=== PATIENT | male | born 1945 | race Caucasian/White ===

== ENCOUNTER → 2024-03-01 13:44 | Outpatient (REF) | payer OTHER, SELFPAY | LOC: RAD 13:44 | PROVIDERS: ATTENDING PHYSICIAN Surgery Vascular Surgery; FAMILY PHYSICIAN Internal Medicine | DX: I77.9 Disorder of arteries and arterioles, unspecified (principal) | CPT/HCPCS: 93922; 93925 ==

== ENCOUNTER → 2024-03-26 06:39 | Outpatient (REF) | payer OTHER, SELFPAY ==
[2024-03-26] MEDS: LEXISCAN 0.400000000000000022 MG IV (08:40)
[2024-03-26] MEDS: FLUSH (NSS) 1 FLUSH IV (08:42)
== END ==
LOC: RCS 06:39
PROVIDERS: ATTENDING PHYSICIAN Internal Medicine Cardiovascular Disease; FAMILY PHYSICIAN Internal Medicine
DX: I73.9 Peripheral vascular disease, unspecified (principal); I10 Essential (primary) hypertension
CPT/HCPCS: 78452; 93017; A9500; J2785

== ENCOUNTER 2024-03-29 06:13 | Inpatient (IN) | payer OTHER, SELFPAY ==
[2024-03-24 09:31] VITALS: BMI 26.3
[2024-03-24 09:58] LABS: % Basophils 0.8 % (0-2); % Eosinophils 1.7 % (0-6); % Immature Granulocytes 0.2 % (0-0.5); % Lymphocytes 23.2 % (20.5-51.1); % Monocytes 10.1 % (1.7-9.3); Absolute Eosinophils 0.1 10^3/uL (0-0.7); Absolute Lymphocytes 1.1 10^3/uL (1.2-3.4); Absolute Monocytes 0.5 10^3/uL (0.1-0.6); Hemoglobin 14.6 g/dL (13.0-18.0); Mean Corpuscular Hgb 34.7 pg (27.0-31.0); Mean Corpuscular Volume 102.1 fL (80.0-94.0); Mean Platelet Volume 10.6 fL (7.4-10.4); Nucleated Red Blood Cells % 0 % (-); Platelet Count 131 10^3/uL (130-400); Red Blood Cell Count 4.21 10^6/uL (4.70-6.10); Red Cell Dist. Width 13.1 % (11.5-14.5); White Blood Cell Count 4.8 10^3/uL (4.8-10.8)
[2024-03-24 10:15] LABS: INR 1.08
[2024-03-24 10:20] LABS: Blood Urea Nitrogen 13 mg/dl (9-20); Calcium 9.2 mg/dl (8.4-10.2); Carbon Dioxide 28 mmol/L (22-30); Chloride 103 mmol/L (98-107); Estimated Creatinine Clearance 65 ml/min; Glucose 118 mg/dl (70-99); Potassium 4.3 mmol/L (3.5-5.1); Sodium 139 mmol/L (135-145); eGFR > 60.00
[2024-03-29] VITALS (26 sets, daily range): BP systolic 90–144; BP diastolic 48–126; BMI 25.8; BMI 25.7
[2024-03-29] MEDS: BACTROBAN NASAL 1 GRAM NASAL (06:55)
[2024-03-29] MEDS: NSS 500 IV (06:55)
[2024-03-29] MEDS: PERIDEX 0.12% ORAL RINSE 15 ML PO (06:55)
--- NOTE | 2024-03-29 08:42 | W.SUR.PREOP ---
Pre-Operative Surgical Note
-
I have examined this patient prior to the performance of the scheduled procedure.
The patient's condition is unchanged from the time of the current History and
Physical and the patient is able to undergo the scheduled procedure.
[2024-03-29 09:49] LABS: ACT-LR - POC 351 Seconds (116-155)
[2024-03-29 10:44] LABS: ACT-LR - POC 248 Seconds (116-155)
[2024-03-29 12:10] LABS: Glucose - Point of Care 128 mg/dl (70-99)
[2024-03-29 12:22] LABS: Hematocrit 36.7 % (39.0-52.0); Hemoglobin 12.6 g/dL (13.0-18.0); Mean Corp Hgb Conc. 34.3 g/dL (33.0-37.0); Mean Corpuscular Hgb 34.5 pg (27.0-31.0); Mean Corpuscular Volume 100.5 fL (80.0-94.0); Red Blood Cell Count 3.65 10^6/uL (4.70-6.10); White Blood Cell Count 7.3 10^3/uL (4.8-10.8)
[2024-03-29] MEDS: NSS 1000 IV (12:25)
--- NOTE | 2024-03-29 12:31 | W.IMMPOSTOP ---
Surgical Immed Post Op Note
-
Primary Surgeon: Dr. Rupert Truong III, MD
Assisting Surgeon: Dr. Edison Payne MD, PhD (PGY-1)
Pre-op Diagnosis: High grade severe occlusive peripheral artery disease left lower extremity
Post-op Diagnosis: High grade severe occlusive peripheral artery disease left lower extremity
Procedure Performed: Left common femoral endarterectomy, diagnostic arteriogram, left common iliac balloon angioplasty, intravascular lithotripsy, stent ([id number]) x1
Anesthesia Type: General
Specimen / Cultures: None
Estimated Blood Loss: 75cc
Complications: None
Operative Findings: The patient was brought to the OR and placed in the supine position. Following anesthesia induction and intubation, ultrasound guidance was used to map the course of the left common femoral artery and bifurcation into left SFA
and profunda. The skin was marked along this course with a marking pen. The patient was then prepped and draped in usual sterile fashion. Incision was made and a combination of sharp and electrocautery dissection was performed. The left common
femoral artery was identified just below the inguinal ligament. Circumferential dissection of the left common femoral artery was performed distally. Small venous branches were ligated with silk ties/clips and divided. A vessel loop was passed around
the proximal left CLAIMS ADJUSTER for proximal control. Vessel loops were also passed around perforating branches from the left CLAIMS ADJUSTER and around the SFA and profunda for distal control. After proximal and distal control was achieved, we turned our focus to the
endovascular component of the case. Using a micropuncture needle, we accessed the [place] left CLAIMS ADJUSTER and introduced a 5-american sheath over a [place] wire. A diagnostic arteriogram was performed and showed significant disease of the left common iliac.
Intravascular lithotripsy was performed along the location of disease. A balloon angioplasty was then performed and [id number] stent was placed. Following this portion of the procedure, arteriotomy was performed and extended with Perez scissors.
Endarterectomy was performed using a freer. Heparinized saline was used to irrigate the site. Then a bovine pericardial patch was brought to the field and a patch arterioplasty was performed with running 6-0 prolene suture. At the conclusion of the
patch arterioplasty, doppler signals were noted in the profunda distally and left CLAIMS ADJUSTER proximally. Hemostasis was achieved with gel foam. Soft tissues and skin were closed with suture and alternating carl and suture at the skin level. A john
dressing was applied. At the conclusion of the case, doppler signals were noted in DP/PT bilaterally. The patient was transferred to the PACU in stable condition.
[2024-03-29 12:38] LABS: INR 1.17; PT 14.7 Sec (11.4-14.6)
[2024-03-29 12:42] LABS: Blood Urea Nitrogen 12 mg/dl (9-20); Calcium 7.6 mg/dl (8.4-10.2); Carbon Dioxide 24 mmol/L (22-30); Chloride 110 mmol/L (98-107); Estimated Creatinine Clearance 93 ml/min; Glucose 150 mg/dl (70-99); Magnesium 1.9 mg/dl (1.6-2.3); Potassium 3.9 mmol/L (3.5-5.1); Sodium 138 mmol/L (135-145); eGFR > 60.00
--- NOTE | 2024-03-29 12:57 | OR.RPT ---
Operative Report
Operative Report
Date of Operation: 03/29/2024
Pre Op Diagnosis:
1.) Severe lifestyle limiting lower extremity claudication with negative quality of life implications
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
3.) Heavily calcified left common femoral artery occlusive plaque
Post Op Diagnosis:
1.) Severe lifestyle limiting lower extremity claudication with negative quality of life implications
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
3.) Heavily calcified left common femoral artery occlusive plaque
Procedure:
1.) Left common femoral artery endarterectomy with patch angioplasty using bovine pericardium
2.) Retrograde intravascular lithotripsy to left common iliac artery calcified stenosis (10 mm x 30 mm L6 shockwave balloon)
3.) Retrograde balloon angioplasty and stenting to left common iliac artery stenosis (10 mm x 59 mm [place] VBX)
Surgeon: Rupert Truong III, MD
Weed Eradicator: Edison Payne MD PhD, PGY1
Anesthesia: General
Complications: None
Estimated Blood Loss: 75 cc
History and Indications for Procedure: 78-year-old male with debilitating lower extremity claudication. Cross-sectional imaging obtained preoperatively demonstrated heavily calcified stenosis in the left common iliac artery along with bulky
calcified occlusive plaque in the left common femoral artery.
Procedure in Detail: The patient was correctly identified and placed supine on the operating table. After adequate induction of anesthesia, the abdomen, pelvis, and bilateral groins to the thighs were prepped and draped in usual sterile fashion.
Preoperative antibiotics were administered. A time-out procedure was performed with the nursing and anesthesia staff confirming the patient's identity as well as the nature and laterality of the procedure. I made a vertical incision over the left
groin. Electrocautery was used to dissect the subcutaneous tissue. Lymphatics were ligated and divided between silk ties and metal clips. Through a combination of sharp dissection and electrocautery, I identified the common femoral artery at the
inguinal ligament. Dissection continued under the inguinal ligament into the left retroperitoneum. The distal left external iliac artery was encircled with a vessel loop underneath the inguinal ligament. Dissection was then continued distally. The
femoral bifurcation was identified as well as the proximal superficial femoral artery and profunda femoral artery. The proximal superficial femoral artery was encircled with a vessel loop. Dissection on the profunda femoral artery was carried to
the first branch point. The distal main profunda femoral artery was controlled with a vessel loop.
The patient was systemically heparinized. We punctured the left common femoral artery in a retrograde fashion with a micropuncture needle. I then upsized to a 8 Vietnamese sheath over a [place] wire. A retrograde left iliac arteriogram was performed
which clearly demonstrated the heavily calcified stenosis in the left common iliac artery. I exchanged out for a 0.018 wire. Due to the heavily calcified nature of the iliac arterial disease and in an effort to modify the calcium to achieve
maximum luminal gain with endovascular intervention I elected to proceed with intravascular lithotripsy. A 10 mm x 30 mm L6 shockwave balloon was placed across the common iliac artery stenosis under roadmap guidance. Alternating rounds of
lithotripsy pulse delivery at sub-nominal pressure and angioplasty at nominal pressure was performed across the stenosis. In between rounds of pulse delivery and angioplasty the balloon was deflated and repositioned under roadmap guidance. All 300
pulses were delivered. Subsequent arteriogram demonstrated a significantly improved result. Under roadmap guidance I brought into position a 10 mm x 59 mm [place] VBX stent. The stent was positioned and deployed in the desired location. Subsequent
arteriogram demonstrated an excellent technical result with a widely patent left common iliac artery stent and no residual stenosis identified.
At this point we proceeded with the common femoral endarterectomy. The proximal and distal vessel loops were secured. The sheath was removed followed by the wire. A Derra type vascular clamp was applied gently to the distal external iliac artery.
Perez scissors were used to extend the arteriotomy proximally and distally on the common femoral artery. The arteriotomy was carried distally to the SFA origin. The arteriotomy was extended up to the proximal common femoral artery. An
endarterectomy was performed in the standard fashion with a [place] elevator. The proximal extent of the plaque was transected and then additional elements of plaque were pulled out from the external iliac artery using forceps and clamps. The distal
end of the plaque terminated at the femoral bifurcation and feathered nicely at the profunda femoral artery origin. There was brisk backbleeding from the profunda femoral artery which was flushed with heparinized saline. The endarterectomy plane
was then irrigated with heparinized saline solution and any loose fronds of tissue were removed. I brought onto the field a precut 1 cm x 6 cm piece of bovine pericardium and this was used as a patch. The patch was then sewn in place using a
running 6-0 Prolene suture. Prior to the completion of the anastomosis, we forward and back flushed the artery. The anastomosis was then completed. The proximal and distal vessel loops were then released. There was an excellent pulse within the
common femoral artery and proximal profunda femoral artery. The suture line was closely inspected for hemostasis which was achieved.
Satisfied with this result, we then concluded the procedure. Heparin was reversed with protamine. The wound was irrigated with copious amounts of warm saline solution. Hemostasis was achieved within the wound bed. The wound was then closed in
multiple layers and a sterile MAN dressing was applied.
The patient tolerated the procedure well and was taken to the recovery room in good condition.
Attestation: I was present and responsible for the entire procedure
Signed:
Rupert Truong III, MD
[facility]
[phone] (cell)
--- NOTE | 2024-03-29 13:06 | CON.INTV ---
Consultation
Consultation Request
Date/Time Consultation Requested: 03/29/24
Date/Time Consultation Performed: 03/29/24
Performing Provider: Amalia
Reason for Consultation: ICU
Medical History
-
History of Present Illness:
Patient is a 78-year-old male with previous history of CAD, history of colon cancer, hypertension, former smoker presenting for elective vascular procedure. Patient has history of severe PAD with chronic claudication worsening in the left lower
extremity. He underwent left femoral endarterectomy, diagnostic arteriogram, left iliac balloon angioplasty, lithotripsy with stent placement 03/29/2024 and transferred to ICU for postoperative management.
Notably, he drinks 8 ounces of whiskey per day.
Former extensive smoker in past, quit >30 years ago.
Past Medical History
Past Medical History: Other (see list below)
Social History
Tobacco: Former Smoker
Alcohol: Daily
Drug: None
Allergies / Home Medications
Allergies
Allergy/AdvReac Type Severity Reaction Status Date / Time
lorazepam [From Ativan] Allergy Severe Unknown Verified 03/29/24 06:30
cilostazol Allergy Tachycardia Verified 03/29/24 06:29
escitalopram Allergy Unknown Verified 03/29/24 06:31
sertraline Allergy Unknown Verified 03/29/24 06:31
Home Medications
�Medication �Instructions �Recorded �Confirmed �Last Taken �Type
aspirin 81 mg tablet,delayed 162 mg PO QPM Blood clot 10/26/11 03/29/24 03/28/24 08:00 History
release prevention/tx
metoprolol tartrate 25 mg tablet 12.5 mg PO BID Blood pressure 10/26/11 03/29/24 03/28/24 20:00 History
lisinopril 20 mg tablet 20 mg PO DAILY Blood pressure 03/05/16 03/29/24 03/28/24 08:00 History
rosuvastatin 40 mg tablet (Crestor) 40 mg PO QPM High cholesterol 03/05/16 03/29/24 03/28/24 08:00 History
levothyroxine 50 mcg tablet 50 mcg PO DAILY AT 0700 Thyroid 12/12/21 03/29/24 03/28/24 08:00 History
tamsulosin 0.4 mg capsule 0.4 mg PO QPM Urinary issue 12/12/21 03/29/24 03/28/24 20:00 History
ezetimibe 10 mg tablet 10 mg PO DAILY High cholesterol 12/18/21 03/29/24 03/28/24 08:00 History
alprazolam 0.5 mg tablet 0.25 mg PO PRN PRN ANXIETY 10/11/22 03/29/24 03/28/24 08:00 History
psyllium 1 packet PO DAILY 03/18/24 03/29/24 03/28/24 08:00 History
clopidogrel 75 mg tablet (Plavix) 75 mg PO DAILY 03/29/24 03/29/24 03/29/24 05:00 History
Review of Systems
-
History Source: Patient
All other systems: Negative unless noted
Vitals / Labs / Diagnostic Testing
Vital Signs
Temp Pulse Resp BP Pulse Ox
97.4 F 60 14 115/56 98
03/29/24 12:45 03/29/24 12:45 03/29/24 12:45 03/29/24 12:45 03/29/24 12:45
Lab Data
03/29/24 12:15
03/29/24 12:15
Laboratory Results
03/29/24
12:15
PT 14.7 H
INR 1.17
APTT 33.0
Diagnostic Testing:
Physical Exam
-
HEENT: Normocephalic, Anicteric, Moist Mucous Membranes and Other (halatosis)
Cardiovascular: S1/S2 and Regular Rhythm
Respiratory: Clear and Non-Labored Respirations
GI: Soft, Non Distended and Non Tender
Neurology: Awake, Alert, Oriented, AO x 3 and No Motor Deficits
Skin: Warm, Dry and Good Color
General: Comfortable and Other (NAD)
Assessment
-
Patient is a 78-year-old male with previous history of CAD, history of colon cancer, hypertension, former smoker presenting for elective vascular procedure. Patient has history of severe PAD with chronic claudication worsening in the left lower
extremity. He underwent left femoral endarterectomy, diagnostic arteriogram, left iliac balloon angioplasty, lithotripsy with stent placement 03/29/2024 and transferred to ICU for postoperative management.
Severe PAD s/p Left common femoral artery endarterectomy with patch angioplasty using bovine pericardium 03/29/24
Retrograde intravascular lithotripsy to left common iliac artery calcified stenosis (10 mm x 30 mm L6 shockwave balloon)
Retrograde balloon angioplasty and stenting to left common iliac artery stenosis (10 mm x 59 mm [place] VBX)
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
CAD status post angioplasty 2003 and 2010
Colon cancer status post resection and chemoradiation 2003
Hypertension
Anal fissure
Colon polyps
Hypercholesterolemia
Left lower extremity angioplasty and stents 12/2021
Former smoker x 27 years 3 to 4 pack/day quit smoking 1991
Chronic ETOH use, drinks 8 ounces of whiskey per day.
Plan
Patient is s/p FEA, angioplasty/lithotripsy by vascular surgery service, POD #0
Continue observation following procedure
Follow neurovascular checks per protocol
ASA, plavix and statin on board
Follow BP monitoring and parameters as set by primary team
Cardiac history noted
Monitor on telemetry
Pain control per protocol
RASS goal 0
No prior history of pulmonary disease, smoking hx includes 2-3PPD for 20+ years, quit >30 years ago.
CXR reviewed indicating no acute disease
No prior PFTs for review
Encouraged IS
At risk for COPD, asympatomatic
Diet advancement per protocol
Aspiration precautions
GI prophylaxis if indicated for stress ulcer prevention in the critically ill
Creat at baseline, follow UO
Critical I/Os
Void trials
Replete electrolytes as needed
No signs/symptoms suspicious for infectious etiology at this time
Will observe off antibiotics for now
Follow temperatures/CBC
Hb and platelets postoperatively stable
DVT prophylaxis recommended if not contraindicated based on procedural history -- heparin SQ and mechanical SCDs
Encouraged OOB/PT/OT/ambulation once cleared by surgical team
We will follow
Diagnostic Data
Chest X-Ray: 03/24/24- No significant change. No acute pulmonary process.
CT Scan:
Echo:
PFT's:
Reports and relevant images were personally reviewed.
-----
Critical care time 50 mins -- this includes review of history, physical exam, medications, hemodynamic/ventilator parameters, laboratory data, imaging and discussion with house staff, pharmacy, respiratory therapy, flavoring oil filterer, and nursing.
[2024-03-29 13:18] LABS: Mean Platelet Volume 10.6 fL (7.4-10.4); Platelet Count 92 10^3/uL (130-400)
--- NOTE | 2024-03-29 13:30 | PTCARENOTE ---
Patient received from PACU. Awake, alert, oriented x3, forgetful but appropriate. Denies any complaints of pain. patient on 4L nasal cannula, oxygen saturation 98%, diminished breath sounds Tele leads attached, sinus rhythm on monitor. Doppler
pulses bilateral DP. Heparin for dvt prophylaxis. Patient is written for clear liquid diet, denies any complaints of nausea or vomiting. Truong draining yellow urine. NSS infusing through right INT at 80ml/hr. left groin incision covered with MAN
dressing. Blinking green, spots of scant dry drainage noted on dressing. Neurovascular checks as documented in worklist. Will review orders, patient oriented to room, oriented to room and plan of care. Call samano within reach.
[2024-03-29] MEDS: SYNTHROID PO (13:43)
[2024-03-29] MEDS: HEPARIN 5000 UNITS SC (15:38)
[2024-03-29] MEDS: ASPIR LOW (ENTERIC COATED) 162 MG PO (17:33)
[2024-03-29] MEDS: FLOMAX 0.400000000000000022 MG PO (17:34)
--- NOTE | 2024-03-29 19:10 | PTCARENOTE ---
vital signs pulled over from previous shift. This RN unable to verify VS accuracy.
[2024-03-29] MEDS: LOPRESSOR 12.5 MG PO (19:18)
--- NOTE | 2024-03-29 19:51 | PTCARENOTE ---
Assumed care of Pt. AAOX3, flat affect. nsr on monitor. pox 97% on 3L. BL pedal pulses with doppler. Oral care provided. vogt draining yellow urine. call samano within reach.
[2024-03-29] MEDS: XANAX 0.25 MG PO (22:25)
--- NOTE | 2024-03-29 23:45 | PTCARENOTE ---
Pt resting, sleeping intermittently. denies pain or discomfort. see neurovascular check documentation. Pt repositioned in bed. A-line patent. IVf infusing as ordered. call samano within reach.
[2024-03-30] VITALS (38 sets, daily range): BP systolic 100–132; BP diastolic 39–74; PULSE 65; BMI 25.7; BMI 26.2
[2024-03-30] MEDS: NSS 1000 IV (00:21)
[2024-03-30] MEDS: HEPARIN 5000 UNITS SC ×3 (00:22→16:51)
--- NOTE | 2024-03-30 04:00 | PTCARENOTE ---
Pt resting, appears comfortable. 97% on RA. denies pain. MAN dressing intact. Pt cleaned with CHG wipes, bed linens and gown changed. nsr on monitor. Pt repositioned in bed. call samano within reach.
[2024-03-30 04:59] LABS: Hematocrit 33.1 % (39.0-52.0); Hemoglobin 11.8 g/dL (13.0-18.0); Mean Corp Hgb Conc. 35.6 g/dL (33.0-37.0); Mean Corpuscular Hgb 35.3 pg (27.0-31.0); Mean Corpuscular Volume 99.1 fL (80.0-94.0); Mean Platelet Volume 11.3 fL (7.4-10.4); Platelet Count 104 10^3/uL (130-400); Red Blood Cell Count 3.34 10^6/uL (4.70-6.10); Red Cell Dist. Width 12.7 % (11.5-14.5); White Blood Cell Count 10.5 10^3/uL (4.8-10.8)
[2024-03-30 05:06] LABS: INR 1.11; PT 14.1 Sec (11.4-14.6)
[2024-03-30 05:07] LABS: APTT 34.4 Sec (23.4-35.0)
[2024-03-30 05:17] LABS: Blood Urea Nitrogen 12 mg/dl (9-20); Calcium 7.9 mg/dl (8.4-10.2); Carbon Dioxide 23 mmol/L (22-30); Chloride 109 mmol/L (98-107); Estimated Creatinine Clearance 93 ml/min; Glucose 160 mg/dl (70-99); Magnesium 1.9 mg/dl (1.6-2.3); Phosphorus 3.1 mg/dl (2.5-4.5); Potassium 3.9 mmol/L (3.5-5.1); Sodium 137 mmol/L (135-145); eGFR > 60.00
[2024-03-30] MEDS: SYNTHROID 50 MCG PO (06:35)
--- NOTE | 2024-03-30 07:13 | W.PN.INTV ---
Today's Communication / Plan
Recommendations
Doing well postoperatively
MSAS for ETOH symptoms
Encouraged OOB/ambulation/PT/IS
Transfer process to tele initiated, we will sign off at this time
Assessment
-
Patient is a 78-year-old male with previous history of CAD, history of colon cancer, hypertension, former smoker presenting for elective vascular procedure. Patient has history of severe PAD with chronic claudication worsening in the left lower
extremity. He underwent left femoral endarterectomy, diagnostic arteriogram, left iliac balloon angioplasty, lithotripsy with stent placement 03/29/2024 and transferred to ICU for postoperative management.
Severe PAD s/p Left common femoral artery endarterectomy with patch angioplasty using bovine pericardium 03/29/24
Retrograde intravascular lithotripsy to left common iliac artery calcified stenosis (10 mm x 30 mm L6 shockwave balloon)
Retrograde balloon angioplasty and stenting to left common iliac artery stenosis (10 mm x 59 mm [place] VBX)
Mild ETOH w/d symptoms
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
CAD status post angioplasty 2003 and 2010
Colon cancer status post resection and chemoradiation 2003
Hypertension
Anal fissure
Colon polyps
Hypercholesterolemia
Left lower extremity angioplasty and stents 12/2021
Former smoker x 27 years 3 to 4 pack/day quit smoking 1991
Chronic ETOH use, drinks 8 ounces of whiskey per day.
Plan
Patient is s/p FEA, angioplasty/lithotripsy by vascular surgery service, POD #1
Continue observation following procedure
Follow neurovascular checks per protocol
ASA, plavix and statin on board
ETOH w/d, mild complaints, continue MSAS
Follow BP monitoring and parameters as set by primary team
Cardiac history noted
Monitor on telemetry
Pain control per protocol
RASS goal 0
No prior history of pulmonary disease, smoking hx includes 2-3PPD for 20+ years, quit >30 years ago.
CXR reviewed indicating no acute disease
No prior PFTs for review
Encouraged IS
At risk for COPD, asymptomatic
Diet advancement per protocol
Aspiration precautions
GI prophylaxis if indicated for stress ulcer prevention in the critically ill
Creat at baseline, follow UO
Critical I/Os
Void trials
Replete electrolytes as needed
No signs/symptoms suspicious for infectious etiology at this time
Will observe off antibiotics for now
Follow temperatures/CBC
Hb and platelets postoperatively stable
DVT prophylaxis recommended if not contraindicated based on procedural history -- heparin SQ and mechanical SCDs
Encouraged OOB/PT/OT/ambulation once cleared by surgical team
Transfer to tele
Diagnostic Data
Chest X-Ray: 03/24/24- No significant change. No acute pulmonary process.
CT Scan:
Echo:
PFT's:
Reports and relevant images were personally reviewed.
-----
Critical care time 34 mins -- this includes review of history, physical exam, medications, hemodynamic/ventilator parameters, laboratory data, imaging and discussion with house staff, pharmacy, respiratory therapy, berry picker, and nursing.
Subjective Dataa
Subjective Data
Date of Service:
Date of Service: March 30, 2024
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
Subjective:
doing well today, OOB
has some mild tremors
otherwise stable on RA
Objective Data
Data Reviewed
Vital Signs / I&O / Oxygen:
Vital Signs
Temp Pulse Resp BP Pulse Ox
97.8 F 64 19 108/39 94
03/30/24 03:48 03/30/24 06:30 03/30/24 06:30 03/30/24 06:30 03/30/24 06:30
Intake and Output
03/29/24 03/30/24 03/31/24
06:59 06:59 06:59
Intake Total 2069 / 2069
Output Total 2425 / 242
Balance -355 / -355
SaO2 94
Nasal Cannula flow liters per 2
minute
Physical Exam
General: Comfortable and Other (NAD)
HEENT: Normocephalic, Anicteric and Moist Mucous Membranes
Cardiovascular: S1-S2 and Regular Rhythm
Respiratory: Clear and Non-Labored Respirations
GI: Soft, Non Distended and Non Tender
Neurology: Awake, Alert, Oriented, AO x 3, No Motor Deficits and Tremors
Skin: Warm, Dry and Good Color
Labs/Micro/Reports
Lab Data
03/30/24 04:38
03/30/24 04:38
Laboratory Results
03/29/24 03/30/24
12:15 04:38
PT 14.7 H 14.1
INR 1.17 1.11
APTT 33.0 34.4
--- NOTE | 2024-03-30 08:01 | W.PN.VS ---
Addendum entered and electronically signed by Rupert Truong III, MD 03/30/24 11:02:
This patient was seen and examined with BEVERLY Coughlin. I agree with the history and physical exam as well as the assessment and plan.
Signed:
Rupert Truong III, MD
[facility]
[phone] (cell)
Original Note:
Today's Communication / Plan
-
Seen and assessed with Dr. Truong
Assessment/Plan
-
POD 1 Left common femoral endarterectomy, diagnostic arteriogram, left common iliac balloon angioplasty, intravascular lithotripsy, stent ([id number]) x1
Plan:
-DC A-line
-DC Dionne
-Out of bed
-PT
-Downgrade to [address] [place] [address]/[facility]
Subjective Data
-
Date of Service: March 30, 2024
Patient seen at bedside this a.m. with Dr. Truong. Patient offers no complaints at this time. No events overnight
Objective Data
-
Vital Signs
Temp Pulse Resp BP Pulse Ox
97.8 F 64 19 108/39 94
03/30/24 03:48 03/30/24 06:30 03/30/24 06:30 03/30/24 06:30 03/30/24 06:30
Intake and Output
03/29/24 03/30/24 03/31/24
06:59 06:59 06:59
Intake Total 2069 / 2069
Output Total 2425 / 2425
Balance -355 / -355
Intake:
Oral fluids 480 / 480
IV fluids (Total) 1590 / 1590
Normosol 150 / 150
Nss 1,000 ml @ 80 mls/hr IV . 1440 / 1440
[id number] [id number] Rx#:[id number]
Output:
Urine, Truong 2425 / 2425
Lab Results
03/30/24 04:38
03/30/24 04:38
Calcium 7.9 mg/dl (8.4-10.2) L 03/30/24 04:38
Phosphorus 3.1 mg/dl (2.5-4.5) 03/30/24 04:38
Magnesium 1.9 mg/dl (1.6-2.3) 03/30/24 04:38
Physical Exam
-
AAOx3
No tachypnea on room air
No tachycardia
Abdomen soft
Groin site clean dry and intact, soft, john intact
Excellent Doppler signals
[2024-03-30] MEDS: METAMUCIL, KONSYL 1 PACKET PO (08:21)
[2024-03-30] MEDS: ZESTRIL 20 MG PO (08:22)
[2024-03-30] MEDS: PLAVIX 75 MG PO (08:22)
[2024-03-30] MEDS: ZETIA 10 MG PO (08:22)
[2024-03-30] MEDS: LOPRESSOR 12.5 MG PO ×2 (08:22→19:53)
[2024-03-30] MEDS: ROXICODONE 5 MG PO ×2 (09:19→22:31)
--- NOTE | 2024-03-30 10:02 | PTCARENOTE ---
pt awake and alert, pleasant , pt NSR on monitor, BP 112/54, L groin [place] dressing intact, L foot pink , slight decrease in sensation as previous , palpable pedal and Posterior tibial pulses , Truong cath DC as ordered at 0900, [place] DC as ordered
0900, pt now oob in chair with 2 assist, pt is tremulous bilateral upper extremities , poor appetite , encouraging po intake , he is now written for telemetry status
--- NOTE | 2024-03-30 11:06 | CM ---
CM following re: discharge planning.
Discussed in Rounds, reviewed pt's chart, met with pt.
Pt is a 78 year old male, admitted with primary dx of POD 1 Left common femoral endarterectomy, diagnostic arteriogram, left common iliac balloon angioplasty, intravascular lithotripsy, stent.
Pt reports he lives with spouse in a condo, has 3 supportive children, ambulates with a walker. No VN or SNF history. Pt reports he was receiving outpatient PT/OT [employer] T[facility] and he plans to resume outpatient PT/OT.
CM consulted to assist pt with D&A treatment resources. Pt declined having drinking problem, expressed unhappiness to talk about it stating: 'I have 2 beers daily and do not see it as a problem'. Per record pt told to MD he drinks 8 OZ of whisky
daily. Pt declined an offer to meet with [facility] team.
PCP: Rupert Reno
Pharmacy: [facility] [place].
D/c plan: home with resumptions of outpatient PT/OT and family support.
CM will follow with discharge plan updates as hospitalization progresses
--- NOTE | 2024-03-30 14:36 | PTCARENOTE ---
pt complaining of bladder distention, bladder scan > 600 pt was straight cath for 600ml urine
[2024-03-30] MEDS: CRESTOR 40 MG PO (17:39)
[2024-03-30] MEDS: FLOMAX 0.400000000000000022 MG PO (17:39)
[2024-03-30] MEDS: ASPIR LOW (ENTERIC COATED) 162 MG PO (17:39)
[2024-03-30] MEDS: XANAX 0.25 MG PO (22:31)
[2024-03-31] VITALS (8 sets, daily range): BP systolic 93–129; BP diastolic 53–66; PULSE 71
[2024-03-31] MEDS: HEPARIN 5000 UNITS SC ×4 (01:00→23:39)
[2024-03-31] MEDS: SYNTHROID 50 MCG PO (06:01)
[2024-03-31 06:23] LABS: Hematocrit 32.6 % (39.0-52.0); Hemoglobin 11.1 g/dL (13.0-18.0); Mean Corpuscular Volume 102.8 fL (80.0-94.0); Mean Platelet Volume 11.5 fL (7.4-10.4); Platelet Count 94 10^3/uL (130-400); Red Blood Cell Count 3.17 10^6/uL (4.70-6.10); Red Cell Dist. Width 13.2 % (11.5-14.5); White Blood Cell Count 7.5 10^3/uL (4.8-10.8)
[2024-03-31 06:46] LABS: Blood Urea Nitrogen 13 mg/dl (9-20); Calcium 8.2 mg/dl (8.4-10.2); Carbon Dioxide 28 mmol/L (22-30); Chloride 105 mmol/L (98-107); Estimated Creatinine Clearance 81 ml/min; Glucose 123 mg/dl (70-99); Potassium 3.6 mmol/L (3.5-5.1); Sodium 137 mmol/L (135-145); eGFR > 60.00
--- NOTE | 2024-03-31 07:42 | W.PN.VS ---
Addendum entered and electronically signed by Marcelo Sanchez MD 03/31/24 08:23:
Seen and examined with GURPREET Almazan. Agree with findings as noted below. Patient without specific complaints this morning. On exam abdomen is soft, nondistended, nontender. Left groin flat, no hematoma. Palpable DP pulse. Foot is warm. Plan/as
discussed and noted below.
Original Note:
Today's Communication / Plan
-
Patient seen and examined at bedside with Dr. Marcelo Sanchez, below plan reviewed with attending.
Assessment/Plan
-
POD 2 Left common femoral endarterectomy, diagnostic arteriogram, left common iliac balloon angioplasty, intravascular lithotripsy, stent ([id number]) x1
Plan:
-Out of bed
-PT
-JOHN dressing to be changed prior to dc by this provider
- Likely discharge today
Subjective Data
-
Date of Service: March 31, 2024
Patient resting comfortably in bed, offers no complaints. Reports tolerating PO diet, and well managed post operative pain.
Objective Data
-
Vital Signs
Temp Pulse Resp BP Pulse Ox
97.8 F 57 18 111/61 96
03/31/24 03:51 03/31/24 03:51 03/31/24 03:51 03/31/24 03:51 03/31/24 03:51
Intake and Output
03/30/24 03/31/24 04/01/24
06:59 06:59 06:59
Intake Total 2070 / 2150 720 / 720
Output Total 2425 / 2425 1800 / 1800
Balance -355 / -275 -1080 / -1080
Intake:
Oral fluids 480 / 480 480 / 480
IV fluids (Total) 1590 / 1670 240 / 240
Normosol 150 / 150
Nss 1,000 ml @ 80 mls/hr IV . 1440 / 1520 240 / 240
[id number] Rx#:[id number]
Output:
Urine, Truong 2425 / 2425 500 / 500
Urine, Voided 700 / 700
Straight cath output 600 / 600
Other:
Number of approximated SMALL 1
amounts of urine
Lab Results
03/31/24 05:45
03/31/24 05:45
Calcium 8.2 mg/dl (8.4-10.2) L 03/31/24 05:45
Phosphorus 3.1 mg/dl (2.5-4.5) 03/30/24 04:38
Magnesium 1.9 mg/dl (1.6-2.3) 03/30/24 04:38
Physical Exam
-
AAOx3
No tachypnea on room air
No tachycardia
Abdomen soft
Groin site clean dry and intact, soft, john intact, no hematoma
Left +1 palpable DP, BL feet warm
[2024-03-31] MEDS: LOPRESSOR 12.5 MG PO ×2 (08:37→19:25)
[2024-03-31] MEDS: ZETIA 10 MG PO (08:37)
[2024-03-31] MEDS: PLAVIX 75 MG PO (08:37)
[2024-03-31] MEDS: ZESTRIL 20 MG PO (08:37)
[2024-03-31] MEDS: METAMUCIL, KONSYL 1 PACKET PO (08:37)
--- NOTE | 2024-03-31 10:15 | PN.CDI ---
CDI
- -
CDI:
Physician Documentation Request
Admit Date: 03/29/24 06:13
Dear Vascular Provider,
Please review the following and provide your response in the progress notes.
Clinical Indicators:
03/29 Procedure Performed:
#...Left common femoral endarterectomy, diagnostic arteriogram,
#...left common iliac balloon angioplasty, intravascular lithotripsy, stent ([id number]) x1
#Estimated Blood Loss: 75cc
Laboratory Tests
03/24/24 03/29/24 03/30/24
09:41 12:15 04:38
Hgb 14.6 12.6 L 11.8 L
Hct 43.0 36.7 L 33.1 L
03/31/24
05:45
Hgb 11.1 L
Hct 32.6 L
Based on the above and your clinical assessment, please clarify in the progress notes, the appropriate diagnosis, if significant, that supports the above abnormalities and additional evaluation, monitoring and/or treatment rendered:
Acute blood loss anemia
Abnormal lab value, clinically insignificant
Other(please specify)
Use of terms such as suspected, likely, concern for, or probable (associated with a specific diagnosis that is being evaluated, monitored, or treated as if it exists) are acceptable and can be coded in the inpatient setting, when documented at the
time of discharge.
Thank you,
Maggy Melendez RN BSN CCDS
CDI Specialist
please contact via tiger text
Please use your independent medical judgment in providing your response.
--- NOTE | 2024-03-31 10:24 | W.PN.UPDATE ---
Update Note
Progress Note Update
IN RESPONSE TO CDI:
03/29 Procedure Performed:
#...Left common femoral endarterectomy, diagnostic arteriogram,
#...left common iliac balloon angioplasty, intravascular lithotripsy, stent ([id number]) x1
#Estimated Blood Loss: 75cc
Laboratory Tests
03/24/24 03/29/24 03/30/24
09:41 12:15 04:38
Hgb 14.6 12.6 L 11.8 L
Hct 43.0 36.7 L 33.1 L
03/31/24
05:45
Hgb 11.1 L
Hct 32.6 L
Based on the above and your clinical assessment, please clarify in the progress notes, the appropriate diagnosis, if significant, that supports the above abnormalities and additional evaluation, monitoring and/or treatment rendered:
Abnormal lab value, clinically insignificant: likely a combination of minimal blood loss intraoperatively plus dilution from IV fluids. Monitored with daily H&H, which has drifted within a reasonable range and does not require treatment.
--- NOTE | 2024-03-31 10:32 | PTCARENOTE ---
nurse reached out to DAMAGE CUTTER under [id number] pertaining to MSAS charting. no order initially placed in chart. after discussing with Vascular DAMAGE CUTTER, okay to stop MSAS checks. pt is oob minimal assist to the chair for breakfast this AM.
--- NOTE | 2024-03-31 11:17 | PTCARENOTE ---
pct got an automatic bp of 93/53. this nurse got a manual of 98/62. Pt is asymptomatic and reports no issues or complaints at this time. his AM bp was 116/65 prior to getting his BP medications but he said he usually runs in the 130/140's prior to
taking it. MOISTURE METER OPERATOR made aware of this due to no hospitalist being assigned to this patient.
[2024-03-31] MEDS: KCL 40 MEQ PO (11:47)
--- NOTE | 2024-03-31 12:40 | W.PN.UPDATE ---
Update Note
Progress Note Update
John dressing changed at bedside. Incisional site clean, dry, intact. Well-approximated, no drainage. New john dressing applied
--- NOTE | 2024-03-31 15:56 | CM ---
Reviewed the chart notes and spoke with the patient and his spouse at the bedside. IMM signed and placed on chart. Patient anticipates being discharged tomorrow. CM continues to be available to patient/family and is monitoring medical plan for
needs at discharge.
Plan: Discharge to home when medically stable.
[2024-03-31] MEDS: FLOMAX 0.400000000000000022 MG PO (17:30)
[2024-03-31] MEDS: ASPIR LOW (ENTERIC COATED) 162 MG PO (17:30)
[2024-03-31] MEDS: CRESTOR 40 MG PO (17:30)
[2024-03-31] MEDS: XANAX 0.25 MG PO (23:39)
[2024-04-01 03:33] VITALS: BP 116/60
[2024-04-01] MEDS: SYNTHROID 50 MCG PO (05:52)
[2024-04-01 06:33] LABS: Hematocrit 32.9 % (39.0-52.0); Hemoglobin 11.4 g/dL (13.0-18.0); Mean Corp Hgb Conc. 34.7 g/dL (33.0-37.0); Mean Corpuscular Hgb 34.9 pg (27.0-31.0); Mean Corpuscular Volume 100.6 fL (80.0-94.0); Mean Platelet Volume 11.1 fL (7.4-10.4); Platelet Count 96 10^3/uL (130-400); Red Blood Cell Count 3.27 10^6/uL (4.70-6.10); Red Cell Dist. Width 13.1 % (11.5-14.5); White Blood Cell Count 5.7 10^3/uL (4.8-10.8)
[2024-04-01 06:58] LABS: Blood Urea Nitrogen 15 mg/dl (9-20); Calcium 8.4 mg/dl (8.4-10.2); Carbon Dioxide 27 mmol/L (22-30); Chloride 105 mmol/L (98-107); Estimated Creatinine Clearance 81 ml/min; Glucose 120 mg/dl (70-99); Potassium 3.8 mmol/L (3.5-5.1); Sodium 136 mmol/L (135-145); eGFR > 60.00
[2024-04-01 07:30] VITALS: BP 141/67
--- NOTE | 2024-04-01 08:10 | W.PN.VS ---
Addendum entered and electronically signed by Marcelo Sanchez MD 04/01/24 16:17:
Seen and examined with GURPREET Almazan early this a.m. This is a late entry. Agree with findings as noted below. Patient without any new significant complaints. Left groin flat, no hematoma. Dressing clean dry and intact. Foot warm with excellent
dopplerable signal. Plan/as discussed and noted below.
Original Note:
Today's Communication / Plan
-
Seen and assessed with Dr. Sanchez
Assessment/Plan
-
POD 3 Left common femoral endarterectomy, diagnostic arteriogram, left common iliac balloon angioplasty, intravascular lithotripsy, stent ([id number]) x1
Plan:
-Discharge home
Subjective Data
-
Date of Service: April 01, 2024
Patient seen at bedside seen with Dr. Sanchez. Patient offers no complaints at this time. Patient feels ready to return home
Objective Data
-
Vital Signs
Temp Pulse Resp BP Pulse Ox
98.0 F 63 18 116/60 95
04/01/24 03:33 04/01/24 03:33 04/01/24 03:33 04/01/24 03:33 04/01/24 03:33
Intake and Output
03/31/24 04/01/24 04/02/24
06:59 06:59 06:59
Intake Total 720 / 720 1680 / 1680
Output Total 1800 / 1800 1175 / 1175
Balance -1080 / -1080 505 / 505
Intake:
Oral fluids 480 / 480 1680 / 1680
IV fluids (Total) 240 / 240
Nss 1,000 ml @ 80 mls/hr IV . 240 / 240
[id number] [facility] Rx#:[id number]
Output:
Urine, Truong 500 / 500
Urine, Voided 700 / 700 1175 / 1175
Straight cath output 600 / 600
Other:
Number of approximated SMALL 1
amounts of urine
Number of approximated MODERATE 1
amounts of urine
Lab Results
04/01/24 06:13
04/01/24 06:13
Calcium 8.4 mg/dl (8.4-10.2) 04/01/24 06:13
Phosphorus 3.1 mg/dl (2.5-4.5) 03/30/24 04:38
Magnesium 1.9 mg/dl (1.6-2.3) 03/30/24 04:38
Physical Exam
-
AAOx3
No tachypnea on room air
No tachycardia
Abdomen soft
Groin site clean dry and intact, soft, john intact, no hematoma
Left +1 palpable DP, BL feet warm
--- NOTE | 2024-04-01 08:20 | W.DS.TRANS ---
DC Summary - Flash Designer
-
Discharge Instructions:
Discharge Diagnosis/Procedures Left common femoral artery endarterectomy with
patch angioplasty using bovine pericardium
Retrograde intravascular lithotripsy to left
common iliac artery calcified stenosis (10 mm x
30 mm L6 shockwave balloon)
Retrograde balloon angioplasty and stenting to
left common iliac artery stenosis (10 mm x 59 mm
[place] VBX)
Diet As tolerated
Activity No strenuous activity
Driving Restrictions No driving for 1 week
Bathing Restrictions OK to Shower
Instructions:
Stand-Alone Forms: DC Instr - Vascular OR
Changes to Home Medications: No
Discharge Medications:
DC Medications w/original date entered in [facility]
aspirin 81 mg tablet,delayed release 162 mg PO QPM Blood clot prevention/tx 10/26/11
metoprolol tartrate 25 mg tablet 12.5 mg PO BID Blood pressure 10/26/11
lisinopril 20 mg tablet 20 mg PO DAILY Blood pressure 03/05/16
rosuvastatin 40 mg tablet (Crestor) 40 mg PO QPM High cholesterol 03/05/16
levothyroxine 50 mcg tablet 50 mcg PO DAILY AT 0700 Thyroid 12/12/21
tamsulosin 0.4 mg capsule 0.4 mg PO QPM Urinary issue 12/12/21
ezetimibe 10 mg tablet 10 mg PO DAILY High cholesterol 12/18/21
alprazolam 0.5 mg tablet 0.25 mg PO PRN PRN ANXIETY 10/11/22
psyllium 1 packet PO DAILY Constipation 03/18/24
clopidogrel 75 mg tablet (Plavix) 75 mg PO DAILY Blood Clot Prevention/Tx 03/29/24
Home Medication Changes
Pending Results: No
[2024-04-01] MEDS: LOPRESSOR 12.5 MG PO (08:34)
[2024-04-01] MEDS: PLAVIX 75 MG PO (08:34)
[2024-04-01] MEDS: ZESTRIL 20 MG PO (08:34)
[2024-04-01] MEDS: ZETIA 10 MG PO (08:34)
[2024-04-01] MEDS: HEPARIN 5000 UNITS SC (08:34)
[2024-04-01] MEDS: METAMUCIL, KONSYL 1 PACKET PO (08:34)
--- NOTE | 2024-04-01 11:05 | PTCARENOTE ---
pt discharged to home at 1055 with . john drain in place on LLE and to come off 04/07. instructions done at bedside with patient and significant other and IVs were removed at bedside as well as tele monitor. pt wheeled down to patient pickup spot
and verbalizes no questions about discharge instructions at this time.
--- NOTE | 2024-04-06 13:07 | W.DCSUMMARY ---
Discharge Summary
Discharge Data
Date of Admission: 03/29/24
Date of Discharge: 04/01/24
-
Pending Results: No
Hospital Course
Attending: Dionne
Consultants: Pulmonary medicine
Allergies: escitalopram, sertraline, cilostazol, lorazepam
Procedure with date: 03/29/24: Left common femoral endarterectomy, diagnostic arteriogram, left common iliac balloon angioplasty, intravascular lithotripsy, stent
History of present illness: The patient is an 78 -year-old male with multiple medical conditions including: CAD, history of colon cancer, hypertension. Patient presented on 03/29/24 for scheduled procedure with Dr Truong. Patient presented at baseline
health with no reports of recent illness or trauma.
Hospital Course: Briefly, the patient underwent scheduled Left common femoral endarterectomy, diagnostic arteriogram, left common iliac balloon angioplasty, intravascular lithotripsy, stent��� without complications, and recovered in PACU. Following
recovery phase one and two patient was transferred to intensive care unit per protocol for continued hemodynamic monitoring. Warp Tension Tester consulted to aid in medical management from a critical care perspective. POD #1 (03/30/24) Patient neurologically
intact, overall doing well, and tolerating PO diet. Surgical incision clean, dry, and intact with suture line well approximated and soft. No evidence of hematoma. Arterial line and IV fluids discontinued. POD#2 (03/31/24) MAN dressing changed at
bedside, plan to work with PT today. POD #3 (04/01/24) Patient able to ambulate without difficulty or incident. Patient stable for discharge to home.
Prescriptions and follow up appointment are included in the DC summary cadd manager note. All instructions were given to the patient in both written and verbal form and the patient expressed understanding.
Discharge Plan
-
Patient Disposition: Home with Home Care
Discharge Diagnosis/Procedures: Left common femoral artery endarterectomy with patch angioplasty using bovine pericardium
Retrograde intravascular lithotripsy to left common iliac artery calcified stenosis (10 mm x 30 mm L6 shockwave balloon)
Retrograde balloon angioplasty and stenting to left common iliac artery stenosis (10 mm x 59 mm [place] VBX)
Condition: Good
Diet: As tolerated
Activity: No strenuous activity
Driving Restrictions: No driving for 1 week
Bathing Restrictions: OK to Shower
Activity Restrictions/Additional Instructions:
The white MAN dressing on the groin site can be peeled off and removed on 04/07. you may throw the dressing and battery pack away.
Until removal you may disconnect at hub closest to your body to shower and re-connect after shower
The battery pack will vibrate and blink different colors, this is normal.
If the dressing becomes saturated or peels away before removal date that is ok, you may remove it at that time.
After removal if you would like to cover the site with gauze you may, change this daily. You also may leave open to air.
DO NOT SOAK incision. Showering is fine but no standing water(tub/pool).
Keep this incision as dry as you can when not showering.
Stand Alone Forms: DC Instr - Vascular OR
Referrals:
Lashawn Delcid PA-C [Specified Professional Personl] - 04/12/24 8:15 am (Vascular follow up)
Rupert Reno DO [Family Provider] -
Prescriptions:
Continued
aspirin 81 MG tablet,delayed release (DR/EC)
162 mg PO QPM
metoprolol tartrate 25 MG tablet
12.5 mg PO BID
lisinopril 20 MG tablet
20 mg PO DAILY
rosuvastatin [Crestor] 40 MG tablet
40 mg PO QPM
tamsulosin 0.4 MG capsule
0.4 mg PO QPM
levothyroxine 50 MCG tablet
50 mcg PO DAILY AT 0700
ezetimibe 10 MG tablet
10 mg PO DAILY
alprazolam 0.5 mg Tablet
0.25 mg PO PRN PRN (Reason: ANXIETY)
psyllium Packet
1 packet PO DAILY
clopidogrel [Plavix] 75 mg Tablet
75 mg PO DAILY
Discharge Orders:
Discharge Patient (As Directed); Ordered 04/01/24
Ordered By: Precious Almazan
Discharge Date and Time
Discharge Date/Time: 04/01/24 11:24
Print Language: PORTUGUESE
== END 2024-04-01 11:24 | disposition home or self-care (01) | DRG 279 ==
LOC: 2 NORTH 06:13
PROVIDERS: Nurse Practitioner; Physician Assistant Medical; ADMITTING PHYSICIAN Surgery Vascular Surgery; FAMILY PHYSICIAN Internal Medicine; OTHER PHYSICIAN Internal Medicine Cardiovascular Disease
PROC: 04FD3ZZ Fragmentation of Left Common Iliac Artery, Percutaneous Approach (ICD-10-PCS; 2024-03-29)
PROC: 047D3DZ Dilation of Left Common Iliac Artery with Intraluminal Device, Percutaneous Approach (ICD-10-PCS; 2024-03-29)
PROC: 04UL0KZ Supplement Left Femoral Artery with Nonautologous Tissue Substitute, Open Approach (ICD-10-PCS; 2024-03-29)
PROC: 04CL0ZZ Extirpation of Matter from Left Femoral Artery, Open Approach (ICD-10-PCS; 2024-03-29)
DX: I70.212 Atherosclerosis of native arteries of extremities with intermittent claudication, left leg (principal); F10.239 Alcohol dependence with withdrawal, unspecified; I70.8 Atherosclerosis of other arteries; I25.10 Atherosclerotic heart disease of native coronary artery without angina pectoris; I10 Essential (primary) hypertension; E78.00 Pure hypercholesterolemia, unspecified; Z79.02 Long term (current) use of antithrombotics/antiplatelets; Z79.82 Long term (current) use of aspirin; Z79.899 Other long term (current) drug therapy; Z85.038 Personal history of other malignant neoplasm of large intestine; Z87.891 Personal history of nicotine dependence; Z95.820 Peripheral vascular angioplasty status with implants and grafts
CPT/HCPCS: 88304; 88311; 35371; 36415; 71046; 80048; 82962; 83735; 84100; 85025; 85027; 85610; 85730; 86850; 86900; 86901; 87070; 97116; 97162; C1769; C1894; C9765; C9767; Q9967

== ENCOUNTER → 2024-04-23 12:00 | Outpatient (REF) | payer OTHER, SELFPAY | LOC: RAD 12:00 | PROVIDERS: ATTENDING PHYSICIAN Psychiatry & Neurology Neurology; FAMILY PHYSICIAN Internal Medicine | DX: J06.9 Acute upper respiratory infection, unspecified (principal); R05.1 Acute cough; R09.89 Other specified symptoms and signs involving the circulatory and respiratory systems | CPT/HCPCS: 71046 ==

== ENCOUNTER → 2024-05-06 13:00 | Outpatient (REF) | payer OTHER, SELFPAY | LOC: RAD 13:00 | PROVIDERS: ATTENDING PHYSICIAN Registered Nurse | DX: I70.209 Unspecified atherosclerosis of native arteries of extremities, unspecified extremity (principal) | CPT/HCPCS: 93922; 93925; 93978 ==

== ENCOUNTER → 2024-12-02 12:57 | Outpatient (REF) | payer OTHER, SELFPAY | LOC: DHVS 12:57 | PROVIDERS: ATTENDING PHYSICIAN Surgery Vascular Surgery; FAMILY PHYSICIAN Internal Medicine | DX: I77.9 Disorder of arteries and arterioles, unspecified (principal) | CPT/HCPCS: 93922; 93925; 93978 ==

== ENCOUNTER → 2025-03-09 14:47 | Outpatient (REF) | payer OTHER, SELFPAY | LOC: PAVMRI 14:47 | PROVIDERS: ATTENDING PHYSICIAN Internal Medicine | DX: R41.89 Other symptoms and signs involving cognitive functions and awareness (principal) | CPT/HCPCS: 70551 ==

== ENCOUNTER → 2025-05-16 12:54 | Outpatient (REF) | payer OTHER, SELFPAY | LOC: RAD 12:54 | PROVIDERS: ATTENDING PHYSICIAN Registered Nurse; FAMILY PHYSICIAN Internal Medicine | DX: I77.9 Disorder of arteries and arterioles, unspecified (principal) | CPT/HCPCS: 93922; 93925 ==